=== PATIENT | female | born 1975 | race Two or more races ===

== ENCOUNTER 2023-05-13 08:51 | Inpatient (IN) | payer BC ==
[~2023-05-13] VITALS: Ht 162.6 cm; Wt 91.4 kg
[~2023-05-13 08:51] MED LIST: ACETAMINOPHEN IV 1000 MG/100ML (10MG/ML) IV ONE; CELECOXIB 100 MG CAP PO ONE; GABA400C PO; GABAPENTIN 400 MG CAP PO ONE; METH-1182 PO
[2023-05-13] MEDS ORDERED: ceFAZolin 1GM/50ML 100 ML IV ONE (09:36)
[2023-05-13] MEDS ORDERED: LIDOCAINE 4MG/ML IV SOLN 500 ML IV ONE (10:39)
[2023-05-13] MEDS ORDERED: ROCURONIUM 10MG/ML 10ML VIAL IV ONE (10:43)
[2023-05-13] MEDS ORDERED: ONDANSETRON HCL 4 MG/2 ML VIAL ONE (10:43)
[2023-05-13] MEDS ORDERED: SODIUM CHLORIDE LOCK 10 ML ONE (10:43)
[2023-05-13] MEDS ORDERED: GLYCOPYRROLATE 0.2 MG/ML 1ML VIAL ONE (10:43)
[2023-05-13] MEDS ORDERED: PROPOFOL 10 MG/ML 20 ML IV ONE ×2 (10:43→13:42)
[2023-05-13] MEDS ORDERED: DexAMETHasone SOD PHOS 10MG/1ML VIAL INJ ONE (10:44)
[2023-05-13] MEDS ORDERED: LIDOCAINE 2% (LOCAL ANESTH.) PF 5ml SDV ONE (10:44)
[2023-05-13] MEDS ORDERED: LABETALOL HCL 5 MG/ML ML 20ML VIAL IV ONE (11:13)
[2023-05-13] MEDS ORDERED: SUGAMMADEX 200mg/2ml Vial (100MG/ML) IV ONE (11:32)
[2023-05-13] MEDS ORDERED: TRANEXAMIC ACID 20 ML ONE (12:02)
[2023-05-13] MEDS ORDERED: fentaNYL CITRATE 100 MCG/2 ML VL ONE (12:59)
[2023-05-13] MEDS ORDERED: MINERAL OIL TOPICAL 10ml TOP ONE (13:18)
[2023-05-13] MEDS ORDERED: ePHEDrine SULFATE 50 MG/ML AMP ONE (13:21)
[2023-05-13] MEDS ORDERED: ceFAZolin 1GM VL ONE (14:33)
[2023-05-13] MEDS: CYCLOBENZAPRINE HCL 10 MG TAB ONE ×2 (14:57→15:53)
[2023-05-13] MEDS ORDERED: ACETAMINOPHEN 325 MG TAB PO PRN (15:00)
[2023-05-13] MEDS ORDERED: NITROGLYCERIN 0.4 MG SL TAB SL PRN (15:00)
[2023-05-13] MEDS ORDERED: MORPHINE SULFATE INJ 2 MG/ml SYRG IV PRN ×2 (15:00)
[2023-05-13] MEDS ORDERED: HYDROcodone-ACET 10/325MG TAB PO PRN (15:00)
[2023-05-13] MEDS: ceFAZolin 1GM/50ML 50 ML IV SCH ×2 (15:00→22:24)
[2023-05-13] MEDS ORDERED: ONDANSETRON HCL 4 MG/2 ML VIAL IV PRN ×2 (15:00→15:30)
[2023-05-13 15:14] VITALS: RESP 12; O2SAT 97
[2023-05-13] MEDS ORDERED: LABETALOL HCL 5 MG/ML 4ML SYRINGE IV PRN (15:30)
[2023-05-13] MEDS ORDERED: ePHEDrine SULFATE 50 MG/ML AMP IV PRN (15:30)
[2023-05-13] MEDS ORDERED: NALOXONE HCL 0.4 MG/ML VIAL IV PRN (15:30)
[2023-05-13] MEDS ORDERED: oxyCODONE HCL 5MG TAB PO PRN (15:30)
[2023-05-13] MEDS ORDERED: FLUMAZENIL 0.1 MG/ML INJ 10ML MDV IV PRN (15:30)
[2023-05-13] MEDS ORDERED: fentaNYL CITRATE 100 MCG/2 ML VL IV PRN (15:30)
[2023-05-13] MEDS ORDERED: hydrALAZINE HCL 20 MG/ML VL IV PRN (15:30)
[2023-05-13] MEDS: HYDROmorphone HCL 2 MG/ML VL/or syr IV PRN ×2 (15:50→16:00)
[2023-05-13 17:05] VITALS: BP 133/80; PULSE 102; PULSE 99; RESP 18; RESP 19; O2SAT 97
[2023-05-13] MEDS: D5W/SOD CHLO 0.9% 1,000 ML IV SCH (17:54)
[2023-05-13 20:00] VITALS: PULSE 101; RESP 18; O2SAT 98
[2023-05-13 22:00] VITALS: BP 102/58; PULSE 95; RESP 18; TEMP 97.8; O2SAT 97
[2023-05-13] MEDS: CYCLOBENZAPRINE HCL 10 MG TAB PO SCH (22:24)
[2023-05-13] MEDS: DOCUSATE SOD 100 MG CAP PO SCH (22:24)
[2023-05-14] MEDS: D5W/SOD CHLO 0.9% 1,000 ML IV SCH ×2 (03:39→11:00)
[2023-05-14 05:00] VITALS: BP 140/64; PULSE 75; RESP 18; TEMP 98.1; O2SAT 99
[2023-05-14] MEDS: CYCLOBENZAPRINE HCL 10 MG TAB PO SCH ×2 (05:29→14:00)
[2023-05-14 08:00] VITALS: BP 109/52; PULSE 83; PULSE 99; RESP 16; TEMP 98.2; O2SAT 98
[2023-05-14] MEDS: DOCUSATE SOD 100 MG CAP PO SCH (10:14)
[2023-05-14 12:00] VITALS: BP 119/58; PULSE 86; RESP 16; TEMP 98.2; O2SAT 96
[2023-05-14 16:01] VITALS: BP 109/52; PULSE 83; RESP 16; TEMP 36.8; O2SAT 98
== END 2023-05-14 16:30 | disposition home or self-care (01) | DRG 473 ==
LOC: SUR 08:51 → TELE 14:52 → TELE-CENTR 17:12
PROVIDERS: ADMIT Orthopaedic Surgery; ATTEND Orthopaedic Surgery
PROC: 0RG20A0 Fusion of 2 or more Cervical Vertebral Joints with Interbody Fusion Device, Anterior Approach, Anterior Column, Open Approach (ICD-10-PCS; principal; 2023-05-14)
PROC: 0RB30ZZ Excision of Cervical Vertebral Disc, Open Approach (ICD-10-PCS; 2023-05-14)
PROC: 01N10ZZ Release Cervical Nerve, Open Approach (ICD-10-PCS; 2023-05-14)
PROC: 00NW0ZZ Release Cervical Spinal Cord, Open Approach (ICD-10-PCS; 2023-05-14)
PROC: 4A11X4G Monitoring of Peripheral Nervous Electrical Activity, Intraoperative, External Approach (ICD-10-PCS; 2023-05-14)
DX: M48.02 Spinal stenosis, cervical region (principal); M54.12 Radiculopathy, cervical region
CPT/HCPCS: 72040; 76000; 86850; 86900; 86901; 87081; 97110; 97116; 97163; 97530; G0378; J0131; J0690; J1100; J2001; J2405; J2704; J7042